=== PATIENT | female | born 1985 | race Caucasian/White ===

== ENCOUNTER → 2016-04-30 | Outpatient (REF) | payer OTHER | LOC: M SFHCCLAY 11:33 | PROVIDERS: ATTEND Family Medicine | DX: R35.0 Frequency of micturition (principal); R31.9 Hematuria, unspecified; R63.5 Abnormal weight gain ==

== ENCOUNTER → 2016-05-01 | Outpatient (REF) | payer OTHER ==
[2016-05-01 18:58] LABS: ALBUMIN 3.9 GM/DL (3.2-5.2); ALKALINE PHOSPHATASE 49 U/L (45-117); ALT/SGPT 43 U/L (12-78); ANION GAP 8 MEQ/L (8-16); AST/SGOT 28 U/L (15-37); BILIRUBIN,TOTAL 0.2 MG/DL (0.2-1.0); BLOOD UREA NITROGEN 15 MG/DL (7-18); CALCIUM LEVEL 8.6 MG/DL (8.5-10.1); CARBON DIOXIDE LEVEL 28 MEQ/L (21-32); CHLORIDE LEVEL 107 MEQ/L (98-107); CHOLESTEROL LEVEL 196 MG/DL (<200); CREATININE FOR GFR 0.77 MG/DL (0.55-1.02); GLOMERULAR FILTRATION RATE > 60.0 (>60); GLUCOSE, FASTING 92 MG/DL (70-105); POTASSIUM SERUM 4.2 MEQ/L (3.5-5.1); SODIUM LEVEL 143 MEQ/L (136-145); TOTAL PROTEIN 6.9 GM/DL (6.4-8.2); TRIGLYCERIDES LEVEL 45 MG/DL (<150)
== END ==
LOC: M SFHCCLAY 09:27
PROVIDERS: ATTEND Family Medicine
DX: Z00.00 Encounter for general adult medical examination without abnormal findings (principal)

== ENCOUNTER → 2016-05-01 | Outpatient (CLI) | payer OTHER ==
--- NOTE | 2016-05-01 12:50 | REP ---
FACIAL BONE SERIES: Five views. HISTORY: Facial injury. Attention nasal bones. FINDINGS: Bony orbital margins are intact. Nasal bone and inferior maxillary spine are intact. Zygomas are intact. No facial or mandibular fracture is visible. Paranasal sinuses are clear. IMPRESSION: Negative facial bones. No nasal or facial fracture seen.
== END ==
LOC: M CLY 08:58
PROVIDERS: ATTEND Nurse Practitioner
DX: S09.93XA Unspecified injury of face, initial encounter (principal); X58.XXXA Exposure to other specified factors, initial encounter; Y92.9 Unspecified place or not applicable; Y93.9 Activity, unspecified; Y99.9 Unspecified external cause status

== ENCOUNTER → 2016-06-20 | Outpatient (REF) | payer OTHER | LOC: M SFHCWAGY 11:33 | PROVIDERS: ATTEND Nurse Practitioner Women's Health | DX: Z12.4 Encounter for screening for malignant neoplasm of cervix (principal) ==

== ENCOUNTER 2016-08-23 21:28 | Emergency (ER) | payer OTHER ==
[~2016-08-23] VITALS: Ht 170.2 cm; Wt 81.9 kg
[2016-08-23 21:28] VITALS: BP 137/87
== END 2016-08-23 22:27 | disposition left against medical advice (07) ==
LOC: M ED 21:28
DX: M54.9 Dorsalgia, unspecified (principal); Z53.29 Procedure and treatment not carried out because of patient's decision for other reasons

== ENCOUNTER → 2017-08-25 | Outpatient (REF) | payer OTHER ==
[2017-08-25 11:42] LABS: HEMATOCRIT 41.1 % (36.0-47.0); HEMOGLOBIN 13.8 g/dl (12.0-15.5); MEAN CORPUSCULAR HEMOGLOBIN 31.4 pg (27.0-33.0); MEAN CORPUSCULAR HGB CONC 33.6 g/dl (32.0-36.5); MEAN CORPUSCULAR VOLUME 93.4 fl (80.0-96.0); PLATELET COUNT, AUTOMATED 276 10^3/uL (150-450); RED CELL DISTRIBUTION WIDTH 12.5 % (11.5-14.5); WHITE BLOOD COUNT 6.5 10^3/uL (4.0-10.0)
[2017-08-25 12:24] LABS: ALBUMIN/GLOBULIN RATIO 1.29 (1.00-1.93); ALKALINE PHOSPHATASE 48 U/L (45-117); ALT/SGPT 24 U/L (12-78); ANION GAP 9 MEQ/L (8-16); AST/SGOT 12 U/L (7-37); BILIRUBIN,TOTAL 0.5 MG/DL (0.2-1.0); BLOOD UREA NITROGEN 10 MG/DL (7-18); CALCIUM LEVEL 8.6 MG/DL (8.5-10.1); CARBON DIOXIDE LEVEL 25 MEQ/L (21-32); CHLORIDE LEVEL 106 MEQ/L (98-107); CHOLESTEROL LEVEL 180 MG/DL (<200); CHOLESTEROL RISK RATIO 2.307 (<5); CREATININE FOR GFR 0.85 MG/DL (0.55-1.30); GLOMERULAR FILTRATION RATE > 60.0 (>60); GLUCOSE, FASTING 82 MG/DL (70-100); HDL CHOLESTEROL 78 MG/DL (>40); LDL CHOLESTEROL 92.2 MG/DL (<100); NON-HDL-C 102 MG/DL; POTASSIUM SERUM 4.1 MEQ/L (3.5-5.1); SODIUM LEVEL 140 MEQ/L (136-145); TOTAL PROTEIN 7.1 GM/DL (6.4-8.2); TRIGLYCERIDES LEVEL 49 MG/DL (<150)
== END ==
LOC: M SFHCCLAY 09:02
DX: K21.9 Gastro-esophageal reflux disease without esophagitis (principal); F90.0 Attention-deficit hyperactivity disorder, predominantly inattentive type; E78.5 Hyperlipidemia, unspecified; F41.1 Generalized anxiety disorder

== ENCOUNTER → 2018-03-04 | Outpatient (CLI) | payer OTHER ==
--- NOTE | 2018-03-05 10:58 | REP ---
Obstetric sonography: History: Supervision of . Findings: Scanning through the gravid uterus demonstrates a viable single intrauterine gestation in a breech lie. motion is observed and heart rate is recorded at 163 beats per minute. An anterior grade 0 placenta is seen without evidence of previa or abruption. Amniotic fluid is subjectively normal. Closed cervical length is normal at 4.3 cm. No extrauterine abnormalities observed. No anomaly is seen. The following anatomic structures are less than optimally seen due to position: face and profile, four-chamber heart and left ventricular outflow tract view, spine. The following additional anatomic structures are identified and felt to be unremarkable: cranium, choroid plexus, cavum, cerebellum and posterior fossa, lungs, right ventricular outflow tract view, diaphragm, left-sided stomach, abdominal wall cord insertion, three-vessel cord, kidneys, upper and lower extremities. Biometry chart: BPD 5.8 cm = 23 weeks 6 days Head circumference 21.8 cm = 23 weeks 6 days Abdominal circumference 19.2 cm = 24 weeks 0 days Femur length 4.1 cm = 23 weeks 2 days HC/AC ratio normal 1.3. Cephalic index normal 0.74. Estimated weight 621 grams, 1 pound 5 ounces, 55th percentile for 23 weeks 3 days. Impression: Viable single intrauterine gestation at 23 weeks 3 days by today's composite sonographic criteria. TIAN by today's sonography June 28, 2018. anatomic survey is felt to be incomplete as above.
== END ==
LOC: M WHC 09:58
PROVIDERS: ATTEND Nurse Practitioner Women's Health
DX: Z36.89 Encounter for other specified antenatal screening (principal); Z3A.23 23 weeks gestation of pregnancy

== ENCOUNTER → 2018-03-19 | Outpatient (CLI) | payer OTHER ==
--- NOTE | 2018-03-19 16:24 | REP ---
OB ULTRASOUND: Real-time sonographic evaluation of the gravid uterus is performed utilizing transabdominal technique. There is a single living intrauterine gestation, estimated gestational age 25 weeks 4 days, EDC 06/28/2018. Today's measurements indicate appropriate growth. BPD 67 mm = 27 weeks 0 days, 80th percentile HC 239 mm = 26 weeks 0 days, 60th percentile AC 214 mm = 25 weeks 6 days, 58th percentile FL 47 mm = 25 weeks 5 days, 54th percentile HC/AC ratio 1.12, within normal range. Estimated weight 865 grams, 53rd percentile. Cervix closed and measures 5.2 cm in length. heart rate 146 beats per minute. SEEN/GROSSLY UNREMARKABLE Lateral ventricles yes Posterior fossa yes Upper lip yes Four-chamber heart no LVOT yes RVOT yes Stomach yes Cord insertion yes Three vessel cord yes Kidneys yes Bladder yes Spine no position: Vertex. Placenta: Anterior and grade 1 with no previa or abruption. Amniotic fluid: Within normal limits. Electronically Signed by Deon Seals MD 03/19/2018 04:27 P
== END ==
LOC: M RAD 14:45
PROVIDERS: ATTEND Obstetrics & Gynecology
DX: Z36.89 Encounter for other specified antenatal screening (principal); Z3A.25 25 weeks gestation of pregnancy

== ENCOUNTER → 2018-03-29 | Outpatient (CLI) | payer OTHER ==
[2018-03-29 12:52] LABS: BASO % 0.2 % (0.0-1.0); EOS % 0.2 % (0.0-3.0); HEMATOCRIT 40.4 % (36.0-47.0); HEMOGLOBIN 13.5 g/dl (12.0-15.5); LYMPH # 1.5 10^3/uL (1.5-4.5); MEAN CORPUSCULAR HEMOGLOBIN 31.5 pg (27.0-33.0); MEAN CORPUSCULAR HGB CONC 33.4 g/dl (32.0-36.5); MEAN CORPUSCULAR VOLUME 94.2 fl (80.0-96.0); MONO # 0.5 10^3/uL (0.0-0.8); NEUTROPHILS # 6.8 10^3/uL (1.8-7.7); PLATELET COUNT, AUTOMATED 296 10^3/uL (150-450); RED BLOOD COUNT 4.29 10^6/uL (4.00-5.40)
[2018-03-29 13:09] LABS: GLUCOSE CHALLENGE TEST 1 HOUR 119 MG/DL (LESS THAN 140)
[2018-03-29 13:52] LABS: RUBELLA IgG QUALITATIVE IMMUNE (IMMUNE)
[2018-03-29 14:04] LABS: CHLAMYDIA DNA AMPLIFICATION NEGATIVE (NEGATIVE); GC DNA AMPLIFICATION NEGATIVE (NEGATIVE)
[2018-03-29 14:19] LABS: HIV 1&2 SCREEN CENTAUR NEGATIVE (NEGATIVE)
== END ==
LOC: M LAB 10:48
PROVIDERS: ATTEND Obstetrics & Gynecology
DX: Z34.82 Encounter for supervision of other normal pregnancy, second trimester (principal)

== ENCOUNTER → 2018-04-21 | Outpatient (CLI) | payer OTHER ==
--- NOTE | 2018-04-22 02:57 | REP ---
Clinical: Anatomical evaluation. Comparison: 03/19/2018 . Findings: Examination demonstrates a single live intrauterine in cephalic presentation. motion is identified by technologist. Placenta is noted anterior and grade grade 1 without evidence for placenta previa or abruption. Amniotic fluid volume is normal. Cervix measures 4.6 cm in length and appears closed. No evidence for nuchal cord. Gestational age by LMP 30 weeks 2 days with TIAN is 06/28/2018 . Gestational age by current measurements 30 weeks 6 days with TIAN 06/24/2018 . FHR equals 145 beats per minute. Estimated weight 1689 grams ( 60th percentile). Amniotic fluid index: 10.2 cm (9.0 - 23.5) Umbilical cord SD ratio: 2.67 (2.50 - 3.50) Anatomical assessment demonstrates normal structures including cranium, choroid plexus, cavum, cerebellum/posterior fossa, facial features, lungs, four-chamber heart/ventricular outflow tracts, diaphragm, stomach, cord insertion/three-vessel cord, kidneys/bladder, spine, and extremities. Impression: Single live intrauterine in cephalic presentation demonstrating appropriate interval growth. Anatomical assessment is complete and normal. No gross abnormalities are identified. Electronically Signed by Kalia Rodriguez MD 04/22/2018 02:48 A
== END ==
LOC: M RAD 13:29
PROVIDERS: ATTEND Obstetrics & Gynecology
DX: Z34.82 Encounter for supervision of other normal pregnancy, second trimester (principal); Z36.89 Encounter for other specified antenatal screening

== ENCOUNTER → 2018-05-25 | Outpatient (REF) | payer OTHER | LOC: M LAB REF 13:09 | PROVIDERS: ATTEND Advanced Practice Midwife | DX: O98.513 Other viral diseases complicating pregnancy, third trimester (principal); Z3A.00 Weeks of gestation of pregnancy not specified ==

== ENCOUNTER 2018-06-23 03:57 | Inpatient (IN) | payer OTHER ==
[2018-06-23] VITALS (45 sets, daily range): BP systolic 114–198; BP diastolic 71–112
[~2018-06-23] VITALS: Ht 170.2 cm; Wt 100.4 kg
[2018-06-23] MEDS ORDERED: PRENTAB9 PO (05:12)
[2018-06-23] MEDS ORDERED: VALT500T PO (05:12)
[2018-06-23 05:28] LABS: HEMATOCRIT 41.1 % (36.0-47.0); MEAN CORPUSCULAR HEMOGLOBIN 30.8 pg (27.0-33.0); MEAN CORPUSCULAR HGB CONC 34.1 g/dl (32.0-36.5); MEAN CORPUSCULAR VOLUME 90.5 fl (80.0-96.0); PLATELET COUNT, AUTOMATED 260 10^3/uL (150-450); RED BLOOD COUNT 4.54 10^6/uL (4.00-5.40); WHITE BLOOD COUNT 9.5 10^3/uL (4.0-10.0)
[2018-06-23] MEDS ORDERED: miSOPROStol 50 MCG 1/2 TAB (S0191) PO ONE ×2 (06:30→11:00)
--- NOTE | 2018-06-23 07:26 | HPE ---
DATE OF ADMISSION: 06/23/2018 REASON FOR ADMISSION: Premature rupture of membranes. HISTORY OF PRESENT ILLNESS: Ms Herrera is a 33-year-old, 1, who presents at 39 weeks 2 days estimated gestational age by third trimester ultrasound with complaints of leakage of fluid. She reports approximately at 2:00 a.m. this morning, large of leakage of clear fluid that continued. She reports irregular contractions. Denies any vaginal bleeding. Reports active movement. course is remarkable for late entry care. She initiated her care at 25 weeks and since has been appropriate. PAST MEDICAL HISTORY: History of anxiety depression. PAST SURGICAL HISTORY: She has had oral surgery. OBSTETRICAL HISTORY: She is a 1. MEDICATIONS INCLUDE: - Valtrex for herpes simplex virus (HSV) prophylactic therapy. - vitamins. ALLERGIES: She has no known drug allergies. PHYSICAL EXAMINATION: Vital signs are stable. She is afebrile. She has a rate tracing with heart rate 140s, moderate variability, spontaneous accelerations. She has contractions approximately every 4-6 minutes on the tocometer. GENERAL APPEARANCE: Well appearing, no acute distress. LUNGS: Clear to auscultation bilaterally. CARDIOVASCULAR: Heart regular rate and rhythm. ABDOMEN: Gravid, nontender. Estimated weight (EFW) 3700 grams. CERVICAL EXAM: She is 1 cm dilated, 25% effaced, Nitrazine is positive, pooling is positive. LABS: Blood type is O+, antibody screen is negative. Rubella is immune. RPR is nonreactive. Hepatitis surface antigen negative. HIV is negative. Hepatitis C is nonreactive. Chlamydia, gonorrhea screens are negative. She had a normal 1-hour Glucola. She is GBS negative. ASSESSMENT: 1. This patient is a 33-year-old 1 at 39 weeks 2 days estimated gestational age with premature rupture of membranes. 2. Reassuring status. 3. History of HSV with prophylactic therapy with no visible lesions on her exam. PLAN: 1. The plan is to admit to labor and delivery. CBC, RPR, type and screen. 2. The patient has been counseled in regards to augmentation of labor and discussed medication used in labor and delivery as well as procedures performed. She has also been verbally consented for emergency surgery, blood products, anesthesia and desires to proceed with plan of care. 3. Will initiate her augmentation with 50 mcg of oral misoprostol
[2018-06-23 10:12] LABS: ALT/SGPT 17 U/L (12-78); BILIRUBIN,TOTAL 0.4 MG/DL (0.2-1.0); CREATININE FOR GFR 0.67 MG/DL (0.55-1.30); GLOMERULAR FILTRATION RATE > 60.0 (>60); LDH LACTATE DEHYDROGENASE 352 U/L (84-246); URIC ACID 5.1 MG/DL (2.6-6.0)
[2018-06-23] MEDS ORDERED: LR 1,000 ML IV SCH (15:41)
[2018-06-23] MEDS ORDERED: OXYTOCIN DRIP 30 UNITS in APPROPRIATE DILUENT 1 EA IV SCH (15:45)
[2018-06-23] MEDS ORDERED: FENTANYL 2MCG/ML ROPIVACAINE 0.2% IN 0.9% NACL 100ML IVBAG As Ordered ONE (19:18)
[2018-06-23] MEDS ORDERED: EPIDURAL/PCA KEYS XX PRN (21:00)
[2018-06-23] MEDS ORDERED: LACTATED RINGER'S 1000 ML IV PRN (21:00)
[2018-06-23] MEDS ORDERED: EPIDURAL COMMENT XX SCH (21:00)
[2018-06-23] MEDS ORDERED: NALOXONE INJ 0.4 MG/1 ML VIAL (J2310) IV PRN (21:00)
[2018-06-23] MEDS ORDERED: REFRIGERATOR IV KEYS XX PRN (21:00)
[2018-06-23] MEDS ORDERED: FENTANYL/ROPIVACAINE/NACL BAG 100 ML EPIDURAL SCH (21:00)
[2018-06-23] MEDS ORDERED: diphenhydrAMINE INJ 50MG/ML VIAL (J1200) IV PRN (21:00)
[2018-06-23] MEDS ORDERED: ePHEDrine SULFATE 25 MG/5 ML(5MG/ML) SYRINGE IV PRN (21:00)
[2018-06-23] MEDS ORDERED: ONDANSETRON 4MG/2ML VIAL (J2405) IV PRN (21:00)
[2018-06-24] VITALS (9 sets, daily range): BP systolic 124–159; BP diastolic 77–90
[2018-06-24] MEDS ORDERED: OXYTOCIN DRIP 30 UNITS in APPROPRIATE DILUENT 1 EA IV SCH (01:58)
[2018-06-24] MEDS ORDERED: METHYLERGONOVINE MALEATE 0.2 MG TAB PO PRN (02:00)
[2018-06-24] MEDS ORDERED: ACETAMINOPHEN TAB 650MG DOSE (2X325MG) PO PRN (02:00)
[2018-06-24] MEDS ORDERED: DIBUCAINE 1% OINTMENT 30GM TOP PRN (02:00)
[2018-06-24] MEDS ORDERED: MEASLES,MUMPS,RUBELLA VACCINE INJ (MMR-II) (90707) SC SCH (02:00)
[2018-06-24] MEDS ORDERED: ANUSOL HC CREAM 30GM TOP PRN (02:00)
[2018-06-24] MEDS ORDERED: RHOGAM 300 MCG (1500 IU) INJ (J2790) IM SCH (02:00)
[2018-06-24] MEDS: IBUPROFEN 600 MG TAB PO PRN ×2 (04:04→15:58)
--- NOTE | 2018-06-24 07:16 | DN ---
DATE: 06/24/2018 Mechelle is a 33-year-old 1, para 1-0-0-1 now who was admitted to labor and delivery with spontaneous rupture of membranes. Misoprostol and IV Pitocin was used to initiate her labor and labor did ensue. She utilized an epidural for labor coping. She reached complete dilation at 0040. She pushed to a normal spontaneous vaginal delivery of a live male infant in OA position with restitution to LOT position at 013. There is a nuchal cord times one loose reduced manually at the time of delivery. Shoulders delivered with gentle downward traction and the corpus immediately followed. male was placed on maternal abdomen crying and active. His mouth and nares were both bulb suctioned. The cord was clamped times two once pulsations ceased and cut by the maternal grandmother. Cord blood was obtained. A spontaneous expulsion of an intact placenta with three-vessel cord by Hinton mechanism was at 0113. Uterine hemostasis was achieved with IV Pitocin rapid infusion and uterine fundal massage. Estimated blood loss 300 mL. Perineum and vagina inspected noted to have a second-degree midline laceration. The laceration was repaired with 3-0 Rapide under epidural anesthesia. male weighed 7 pounds 12 ounces, 3520 grams, 8 and 9. Mom is going to breastfeed her son and the and she has named him Kiel. At the close of delivery lap counts, needle counts and instrument counts were correct and verified.
[2018-06-24] MEDS: PRENATAL VITAMINS CHEWABLE TABLET PO SCH (08:18)
[2018-06-24] MEDS: ACETAMINOPHEN 500 MG TAB PO PRN ×2 (08:21→20:48)
[2018-06-24] MEDS: DOCUSATE SODIUM 100 MG CAP PO PRN (20:48)
[2018-06-25 06:00] VITALS: BP 120/60
[2018-06-25] MEDS: IBUPROFEN 800 MG TAB PO PRN (06:22)
[2018-06-25] MEDS: PRENATAL VITAMINS CHEWABLE TABLET PO SCH (09:00)
[2018-06-25] MEDS: IBUPROFEN 600 MG TAB PO PRN ×2 (12:20→19:37)
[2018-06-25 18:13] VITALS: BP 136/82
[2018-06-26] MEDS: ACETAMINOPHEN 500 MG TAB PO PRN (01:12)
[2018-06-26] MEDS: DOCUSATE SODIUM 100 MG CAP PO PRN (01:12)
[2018-06-26 06:00] VITALS: BP 144/66
[2018-06-26] MEDS: IBUPROFEN 800 MG TAB PO PRN (06:41)
[2018-06-26] MEDS: PRENATAL VITAMINS CHEWABLE TABLET PO SCH (08:32)
== END 2018-06-26 10:45 | disposition home or self-care (01) | DRG 560 ==
LOC: M LDO 03:57 → M LDI 04:40 → M OBS 06-24 03:38
PROVIDERS: ADMIT Obstetrics & Gynecology; ATTEND Advanced Practice Midwife
PROC: 10E0XZZ Delivery of Products of Conception, External Approach (ICD-10-PCS; principal; 2018-06-24)
PROC: 0KQM0ZZ Repair Perineum Muscle, Open Approach (ICD-10-PCS; 2018-06-24)
DX: O42.02 Full-term premature rupture of membranes, onset of labor within 24 hours of rupture (principal); O69.81X0 Labor and delivery complicated by cord around neck, without compression, not applicable or unspecified; Z3A.39 39 weeks gestation of pregnancy; O70.1 Second degree perineal laceration during delivery; Z37.0 Single live birth

== ENCOUNTER → 2018-12-21 | Outpatient (REF) | payer OTHER, MEDICAID ==
[~2018-12-21] MED LIST: PRENTAB9 PO; VALT500T PO
[2018-12-21 11:33] LABS: HEMATOCRIT 41.2 % (36.0-47.0); HEMOGLOBIN 13.9 g/dl (12.0-15.5); MEAN CORPUSCULAR HEMOGLOBIN 30.5 pg (27.0-33.0); MEAN CORPUSCULAR HGB CONC 33.7 g/dl (32.0-36.5); MEAN CORPUSCULAR VOLUME 90.4 fl (80.0-96.0); PLATELET COUNT, AUTOMATED 301 10^3/uL (150-450); RED BLOOD COUNT 4.56 10^6/uL (4.00-5.40); WHITE BLOOD COUNT 5.6 10^3/uL (4.0-10.0)
[2018-12-21 11:39] LABS: ALBUMIN 3.8 GM/DL (3.2-5.2); ALT/SGPT 17 U/L (12-78); BILIRUBIN,TOTAL 0.4 MG/DL (0.2-1.0); BLOOD UREA NITROGEN 12 MG/DL (7-18); CARBON DIOXIDE LEVEL 25 MEQ/L (21-32); CHLORIDE LEVEL 109 MEQ/L (98-107); CHOLESTEROL LEVEL 192 MG/DL (<200); CHOLESTEROL RISK RATIO 3.096 (<5); CREATININE FOR GFR 0.85 MG/DL (0.55-1.30); GLOMERULAR FILTRATION RATE > 60.0 (>60); GLUCOSE, FASTING 99 MG/DL (70-100); HDL CHOLESTEROL 62 MG/DL (>40); LDL CHOLESTEROL 115 MG/DL (<100); NON-HDL-C 130 MG/DL; POTASSIUM SERUM 4.2 MEQ/L (3.5-5.1); SODIUM LEVEL 141 MEQ/L (136-145); TOTAL PROTEIN 6.9 GM/DL (6.4-8.2); TRIGLYCERIDES LEVEL 73 MG/DL (<150)
== END ==
LOC: M SFHCCLAY 08:55
PROVIDERS: ATTEND Nurse Practitioner Family
DX: K21.9 Gastro-esophageal reflux disease without esophagitis (principal); F90.0 Attention-deficit hyperactivity disorder, predominantly inattentive type; E78.5 Hyperlipidemia, unspecified

== ENCOUNTER → 2019-05-02 | Outpatient (REF) | payer OTHER ==
[2019-05-02 11:41] LABS: CHOLESTEROL RISK RATIO 3.314 (<5)
== END ==
LOC: M SFHCCLAY 08:14
PROVIDERS: ATTEND Nurse Practitioner Family
DX: E78.5 Hyperlipidemia, unspecified (principal)

== ENCOUNTER → 2019-08-23 | Outpatient (REF) | payer OTHER ==
[2019-08-23 11:19] LABS: CHOLESTEROL RISK RATIO 2.94 (<5)
== END ==
LOC: M SFHCCLAY 08:45
PROVIDERS: ATTEND Nurse Practitioner Family
DX: E78.5 Hyperlipidemia, unspecified (principal)

== ENCOUNTER → 2020-05-02 | Outpatient (REF) | payer OTHER ==
[2020-05-02 12:13] LABS: HEMATOCRIT 40.7 % (36.0-47.0); HEMOGLOBIN 13.6 g/dl (12.0-15.5); MEAN CORPUSCULAR HEMOGLOBIN 30.4 pg (27.0-33.0); MEAN CORPUSCULAR HGB CONC 33.4 g/dl (32.0-36.5); MEAN CORPUSCULAR VOLUME 91.1 fl (80.0-96.0); PLATELET COUNT, AUTOMATED 277 10^3/uL (150-450); RED BLOOD COUNT 4.47 10^6/uL (4.00-5.40); WHITE BLOOD COUNT 5.7 10^3/uL (4.0-10.0)
[2020-05-02 12:47] LABS: ALT/SGPT 21 U/L (12-78); BILIRUBIN,TOTAL 0.5 MG/DL (0.2-1.0); BLOOD UREA NITROGEN 11 MG/DL (7-18); CALCIUM LEVEL 9.1 MG/DL (8.5-10.1); CARBON DIOXIDE LEVEL 29 MEQ/L (21-32); CHLORIDE LEVEL 107 MEQ/L (98-107); CHOLESTEROL LEVEL 193 MG/DL (<200); CREATININE FOR GFR 0.75 MG/DL (0.55-1.30); GLOMERULAR FILTRATION RATE > 60.0 (>60); GLUCOSE, FASTING 88 MG/DL (70-100); HDL CHOLESTEROL 64 MG/DL (>40); POTASSIUM SERUM 4.1 MEQ/L (3.5-5.1); SODIUM LEVEL 139 MEQ/L (136-145); TRIGLYCERIDES LEVEL 63 MG/DL (<150)
[2020-05-02 12:48] LABS: ALBUMIN 4.1 GM/DL (3.2-5.2); CHOLESTEROL RISK RATIO 3.015 (<5); LDL CHOLESTEROL 116 MG/DL (<100); NON-HDL-C 129 MG/DL; TOTAL PROTEIN 6.8 GM/DL (6.4-8.2)
== END ==
LOC: M SFHCCLAY 08:42
PROVIDERS: ATTEND Nurse Practitioner Family
DX: K21.9 Gastro-esophageal reflux disease without esophagitis (principal); F90.0 Attention-deficit hyperactivity disorder, predominantly inattentive type; E78.5 Hyperlipidemia, unspecified

== ENCOUNTER → 2020-06-04 | Outpatient (REF) | payer OTHER | LOC: M SFHCWAGY 17:12 | PROVIDERS: ATTEND Nurse Practitioner Women's Health | DX: Z12.4 Encounter for screening for malignant neoplasm of cervix (principal) ==

== ENCOUNTER → 2021-12-09 | Outpatient (REF) | payer OTHER | LOC: M SFHCCLAY 10:16 | PROVIDERS: ATTEND Nurse Practitioner Family | DX: Z53.20 Procedure and treatment not carried out because of patient's decision for unspecified reasons (principal) ==

== ENCOUNTER → 2022-04-01 | Outpatient (CLI) | payer OTHER ==
[~2022-04-01] MED LIST changes: +AMPH1TAB2; +IBUP80TA; +OMEP40CA5
== END ==
LOC: M LABSMTC 09:58
PROVIDERS: ATTEND Anesthesiology
DX: Z01.818 Encounter for other preprocedural examination (principal)

== ENCOUNTER 2022-04-02 07:40 | Day surgery (SDC) | payer OTHER ==
[~2022-04-02] VITALS: Ht 170.2 cm; Wt 85.7 kg
[~2022-04-02 07:40] MED LIST changes: +NS 1,000 ML IV ONE
[2022-04-02] MEDS ORDERED: propofoL 500 MG/50 ML VIAL As Ordered ONE ×2 (08:53→09:09)
[2022-04-02] MEDS ORDERED: fentaNYL 100 MCG/2 ML INJECTION As Ordered ONE (08:53)
[2022-04-02] MEDS ORDERED: LIDOCAINE 2% 100MG/5ML SDV (FOR ANES.) As Ordered ONE (08:53)
[2022-04-02 09:35] VITALS: BP 117/85
== END 2022-04-02 09:45 | disposition home or self-care (01) ==
LOC: M OPP 07:40
PROVIDERS: ATTEND Surgery
DX: K92.1 Melena (principal); K29.70 Gastritis, unspecified, without bleeding; K22.89 Other specified disease of esophagus; K30 Functional dyspepsia; Z79.1 Long term (current) use of non-steroidal anti-inflammatories (NSAID); Z79.899 Other long term (current) drug therapy; Z83.79 Family history of other diseases of the digestive system
CPT/HCPCS: 43239; 45378; 88305; J3010

== ENCOUNTER → 2022-05-12 | Outpatient (REF) | payer OTHER ==
[~2022-05-12] MED LIST changes: -NS 1,000 ML IV ONE
== END ==
LOC: M SFHCWAGY 17:33
PROVIDERS: ATTEND Nurse Practitioner Family
DX: Z12.4 Encounter for screening for malignant neoplasm of cervix (principal)

== ENCOUNTER → 2022-06-03 | Outpatient (REF) | payer OTHER ==
[~2022-06-03] MED LIST changes: +AMPH1CAP5 PO; -AMPH1TAB2; +AMPH1TAB2 PO; -OMEP40CA5; +OMEP40CA5 PO
== END ==
LOC: M SFHCWAGY 13:05
PROVIDERS: ATTEND Nurse Practitioner Family
DX: Z12.4 Encounter for screening for malignant neoplasm of cervix (principal); R87.615 Unsatisfactory cytologic smear of cervix

== ENCOUNTER 2022-09-17 07:48 | Day surgery (SDC) | payer OTHER ==
[~2022-09-17 07:48] MED LIST changes: -IBUP80TA; +IBUP80TA PO; +NS 1,000 ML IV ONE
[2022-09-17] MEDS ORDERED: GLYCOPYRROLATE INJ 0.2 MG/ML 2 ML VIAL As Ordered ONE (08:34)
[2022-09-17] MEDS ORDERED: propofoL 200 MG/20 ML VIAL As Ordered ONE ×2 (08:34→08:41)
[2022-09-17 08:54] VITALS: TEMP 97.2
[2022-09-17 09:11] VITALS: BP 129/86; O2SAT 98
== END 2022-09-17 09:17 | disposition home or self-care (01) ==
LOC: M OPP 07:48
PROVIDERS: ATTEND Surgery
DX: D12.5 Benign neoplasm of sigmoid colon (principal); K64.0 First degree hemorrhoids; K92.1 Melena; Z79.1 Long term (current) use of non-steroidal anti-inflammatories (NSAID); Z79.899 Other long term (current) drug therapy

== ENCOUNTER → 2023-06-22 | Outpatient (REF) | payer OTHER ==
[~2023-06-22] MED LIST changes: -NS 1,000 ML IV ONE
== END ==
LOC: M SFHCWAGY 12:29
PROVIDERS: ATTEND Nurse Practitioner Family
DX: N73.9 Female pelvic inflammatory disease, unspecified (principal)

== ENCOUNTER → 2023-07-01 | Outpatient (REF) | payer OTHER ==
[2023-07-01 17:25] LABS: BASO % 0.7 % (0.0-1.0); EOS # 0.1 10^3/uL (0.0-0.5); EOS % 1.5 % (0.0-3.0); HEMATOCRIT 41.4 % (36.0-47.0); HEMOGLOBIN 13.8 g/dl (12.0-15.5); LYMPH # 1.9 10^3/uL (1.5-5.0); MEAN CORPUSCULAR HEMOGLOBIN 30.4 pg (27.0-33.0); MEAN CORPUSCULAR HGB CONC 33.3 g/dl (32.0-36.5); MEAN CORPUSCULAR VOLUME 91.2 fl (80.0-96.0); MONO # 0.4 10^3/uL (0.0-0.8); MONO % 7.2 % (2.0-8.0); NEUTROPHILS # 3.5 10^3/uL (1.5-8.5); NEUTROPHILS % 58.4 % (36.0-66.0); PLATELET COUNT, AUTOMATED 264 10^3/uL (150-450); RED BLOOD COUNT 4.54 10^6/uL (4.00-5.40); WHITE BLOOD COUNT 5.9 10^3/uL (4.0-10.0)
[2023-07-01 17:30] LABS: ALBUMIN 3.6 G/DL (3.2-5.2); ALKALINE PHOSPHATASE 50 U/L (46-116); ALT/SGPT 28 U/L (7.0-40); AST/SGOT 18 U/L (<34); BILIRUBIN,TOTAL 0.6 MG/DL (0.3-1.2); BLOOD UREA NITROGEN 15 MG/DL (9-23); CALCIUM LEVEL 8.9 MG/DL (8.5-10.1); CARBON DIOXIDE LEVEL 26 MMOL/L (20-31); CHLORIDE LEVEL 107 MMOL/L (98-107); CHOLESTEROL LEVEL 183 MG/DL (<200); CHOLESTEROL RISK RATIO 3.31 (<5); CREATININE FOR GFR 0.84 MG/DL (0.55-1.30); GLOMERULAR FILTRATION RATE > 60.0 (>60); GLUCOSE, FASTING 74 MG/DL (60-100); HDL CHOLESTEROL 55.2 MG/DL (>40); LDL CHOLESTEROL 110.2 MG/DL (<100); NON-HDL-C 127.8 MG/DL; POTASSIUM SERUM 4.4 MMOL/L (3.5-5.1); SODIUM LEVEL 137 MMOL/L (136-145); TOTAL PROTEIN 6.4 G/DL (5.7-8.2); TRIGLYCERIDES LEVEL 88 MG/DL (<150)
[2023-07-01 17:32] LABS: FREE T4 1.24 NG/DL (0.89-1.76)
== END ==
LOC: M SFHCCLAY 10:10
PROVIDERS: ATTEND Nurse Practitioner Family
DX: K21.9 Gastro-esophageal reflux disease without esophagitis (principal); F90.0 Attention-deficit hyperactivity disorder, predominantly inattentive type; F41.1 Generalized anxiety disorder; Z13.220 Encounter for screening for lipoid disorders

== ENCOUNTER → 2024-05-17 | Outpatient (REF) | payer OTHER | LOC: M LAB REF 17:17 | PROVIDERS: ATTEND Otolaryngology | DX: J34.0 Abscess, furuncle and carbuncle of nose (principal) ==

== ENCOUNTER → 2024-06-27 | Outpatient (REF) | payer OTHER ==
[2024-06-29 16:52] LABS: HPV APTIMA Not Detected (Not Detected)
== END ==
LOC: M SFHCWAGY 12:52
PROVIDERS: ATTEND Nurse Practitioner Family
DX: N73.0 Acute parametritis and pelvic cellulitis (principal); Z12.4 Encounter for screening for malignant neoplasm of cervix

== ENCOUNTER → 2024-12-20 | Outpatient (REF) | payer OTHER | LOC: M SFHCCLAY 11:57 | PROVIDERS: ATTEND Physician Assistant | DX: L03.012 Cellulitis of left finger (principal) ==